=== PATIENT | male | born 1970 | race Caucasian/White ===

== ENCOUNTER 2017-10-26 13:12 | Emergency (ER) | payer BC, OTHER ==
[2017-10-26] MEDS: ASPIRIN 325 MG TAB PO (14:20)
[2017-10-26 14:31] LABS: ADD MAN DIFF? NO
[2017-10-26] MEDS: SOD CHLORIDE 0.9% 1,000 ML IV (14:33)
[2017-10-26 14:54] LABS: WHITE BLOOD COUNT 8.1 10^3/ul (4.8-10.8)
[2017-10-26 14:54] LABS: BASOPHILS % 0.4 % (0.0-2.0); EOSINOPHILS % 0.2 % (0.0-7.0); HEMATOCRIT 48.1 % (42.0-52.0); HEMOGLOBIN 16.4 g/dl (14.0-18.0); LYMPHOCYTES # 0.6 10^3/ul (0.8-2.9); LYMPHOCYTES % 7.8 % (15.0-51.0); MEAN CORPUSCULAR HEMOGLOBIN 29.7 pg (29.0-33.0); MEAN CORPUSCULAR HGB CONC 34.1 g/dl (32.0-37.0); MEAN CORPUSCULAR VOLUME 87.1 fl (82.0-101.0); MEAN PLATELET VOLUME 9.4 fl (7.4-10.4); MONOCYTE # 0.4 10^3/ul (0.3-0.9); MONOCYTES % 4.8 % (0.0-11.0); NEUTROPHILS % 86.4 % (39.0-77.0); PLATELET COUNT 216 10^3/UL (140-415); RED BLOOD COUNT 5.52 10^6/ul (4.70-6.10); RED CELL DISTRIBUTION WIDTH 11.5 % (11.5-14.5)
[2017-10-26 15:20] LABS: ANION GAP 18 (8-16); BLOOD UREA NITROGEN 16 mg/dl (7-20); CALCIUM 10.1 mg/dl (8.4-10.2); CARBON DIOXIDE 25 mmol/L (21-31); CHLORIDE 99 mmol/L (97-110); CREATININE 0.63 mg/dl (0.61-1.24); GLUCOSE 158 mg/dl (70-220); SODIUM 138 mmol/L (135-144)
[2017-10-26 15:33] LABS: B-TYPE NATRIURETIC PEPTIDE 27 PG/ML (0-125)
[2017-10-26 15:36] LABS: TROPONIN-I < 0.012 ng/ml (0.00-0.12)
[2017-10-26 16:01] LABS: ALANINE AMINOTRANSFERASE 33 IU/L (13-69); ALKALINE PHOSPHATASE 115 IU/L (42-121); ASPARTATE AMINO TRANSFERASE 25 IU/L (15-46); BILIRUBIN,INDIRECT 0.2 mg/dl (0-1.1); BILIRUBIN,TOTAL 0.2 mg/dl (0.2-1.3); LIPASE 280 U/L (23-300); TOTAL PROTEIN 8.2 g/dl (6.1-8.1)
[2017-10-26 16:02] LABS: ALBUMIN 4.7 g/dl (3.3-4.9)
[2017-10-26] MEDS: MAGNESIUM CITRATE 300 ML BTL PO (19:08)
== END 2017-10-26 19:46 | disposition home or self-care (01) ==
LOC: E/R 13:12
DX: K59.00 Constipation, unspecified (principal); E86.0 Dehydration; E11.65 Type 2 diabetes mellitus with hyperglycemia; Z79.84 Long term (current) use of oral hypoglycemic drugs
CPT/HCPCS: 36415; 71045; 74176; 80048; 80076; 82962; 83690; 83880; 84484; 85025; 93005; 99285-25